=== PATIENT | female | born 1980 | race Caucasian/White ===

== ENCOUNTER 2017-09-08 14:45 | Emergency (ER) | payer OTHER | END 2017-09-08 16:16 | disposition home or self-care (01) | LOC: E/R 14:45 | DX: S00.412A Abrasion of left ear, initial encounter (principal); H91.93 Unspecified hearing loss, bilateral; X58.XXXA Exposure to other specified factors, initial encounter; Y92.9 Unspecified place or not applicable | CPT/HCPCS: 99283 ==